=== PATIENT | female | born 1980 | race Two or more races ===

== ENCOUNTER 2025-07-06 11:31 | Emergency (ER) | payer OTHER ==
[~2025-07-06] VITALS: Ht 160 cm; Wt 68.2 kg
[2025-07-06 11:34] VITALS: BP 110/56; PULSE 80; RESP 18; TEMP 98.3; O2SAT 99
[2025-07-06 12:25] LABS: PLATELET COUNT (AUTO) 278 K/uL (150-450); RED BLOOD CELL COUNT(AUTO) 4.62 MIL/uL (4.00-5.20); RED CELL DISTRIBUTION WIDTH 13.7 % (11.5-14.5); WHITE BLOOD COUNT (AUTO) 9.9 K/uL (4.5-11.0)
[2025-07-06 12:32] LABS: CALCIUM, TOTAL 8.9 mg/dL (8.8-10.5); CREATININE 0.50 mg/dL (0.60-1.30); GLOMERULAR FILTR. RATE CALC > 60 mL/min (>60); GLUCOSE,RANDOM 140 mg/dL (70-110); SODIUM SERUM 138 mmol/L (136-145); UREA NITROGEN, BLOOD 7 mg/dL (7-18)
[2025-07-06 12:41] LABS: TROPONIN I-HIGH SENSITIVITY Less Than 4 ng/L (<51)
[2025-07-06 12:49] LABS: CREATINE KINASE, TOTAL ONLY 2896 U/L (26-192)
== END 2025-07-06 13:45 | disposition left against medical advice (07) ==
LOC: EMS 11:31
DX: F41.9 Anxiety disorder, unspecified (principal); Z53.21 Procedure and treatment not carried out due to patient leaving prior to being seen by health care provider
CPT/HCPCS: 80048; 82550; 82962; 83880; 84484; 85025; 85610; 85730; 93005; 99281